=== PATIENT | female | born 2000 | race Caucasian/White ===

== ENCOUNTER 2022-10-15 18:03 | Emergency (ER) | payer OTHER, MEDICAID, SELFPAY ==
[2022-10-15] VITALS (10 sets, daily range): BP systolic 102–119; BP diastolic 56–69; PULSE 54–76; RESP 15–22; TEMP 36.8; O2SAT 96–100; BMI 35.2
--- NOTE | 2022-10-15 18:34 | DI.RAD.S_ITS ---
PROCEDURE: XR CHEST 1V INDICATIONS: chest pain TECHNIQUE: One view of the chest was acquired. COMPARISON: None. FINDINGS: Surgical changes and devices: None. Lungs and pleura: Lungs are clear. No pleural effusions or pneumothorax. Mediastinum: Mediastinal contours appear normal. Heart size is normal. Bones and chest wall: No suspicious bony lesions. Overlying soft tissues appear unremarkable. IMPRESSION: No acute cardiopulmonary abnormalities or focal airspace disease. Dictated by: Jose Velazquez M.D. on 10/15/2022 at 19:53 Approved by: Jose Velazquez M.D. on 10/15/2022 at 19:53
--- NOTE | 2022-10-15 19:24 | PC.NURSE ---
IV inserted by Vinny SYKES
[2022-10-15 19:28] LABS: Add Manual Diff / Slide Review NO; Basophils Absolute Auto 0 /uL (0-100); Basophils Percent Auto 0.3 % (0-2); Eosinophils Absolute Auto 0 /uL (0-450); Eosinophils Percent Auto 0.3 % (2-4); Hematocrit 37.9 % (36-46); Lymphocytes Absolute Auto 2000 /uL (1100-4500); Lymphocytes Percent Auto 20.4 % (25-40); Mean Corpuscular HGB Conc 34.2 % (30-36); Mean Corpuscular Hemoglobin 30.3 PG (26-34); Mean Corpuscular Volume 88.4 fL (80-100); Monocytes Absolute Auto 700 /uL (0-900); Monocytes Percent Auto 6.9 % (3-14); Neutrophils Absolute Auto 7200 /uL (1500-7000); Neutrophils Percent Auto 72.1 % (50-75); Platelet Count 230 X10^3/uL (150-400); Red Blood Cell Count 4.28 X10^6/uL (4.0-5.2); Red Cell Distribution Width 12.7 % (11.6-14.8)
[2022-10-15 19:34] LABS: INR 1.2 (0.9-1.3); Prothrombin Time 13.4 SECONDS (10.1-12.7)
[2022-10-15 19:37] LABS: PTT Partial Thromboplastin Tim 31 SECONDS (26-36)
[2022-10-15] MEDS: ASPIRIN 81 MG CHEW TAB 324 MG PO (19:51)
[2022-10-15 20:16] LABS: Alanine Aminotransferase 14 IU/L (<35); Albumin 4.1 g/dL (3.5-5.0); Albumin Globulin Ratio 1.4 (1.0-2.8); Alkaline Phosphatase 63 U/L (38-126); Aspartate Aminotransferase 22 IU/L (14-36); BUN Creatinine Ratio 14.5 (6-22); Bilirubin Total 0.6 mg/dL (0.2-1.3); Blood Urea Nitrogen 10 mg/dL (7-17); Calcium 8.7 mg/dL (8.4-10.2); Carbon Dioxide 23 mmol/L (22-32); Chloride 106 mmol/L (98-107); Creatine Kinase 40 U/L (30-135); Estimated Glomerular Filt Rate > 60 mL/min (>60); Glucose 86 mg/dL (70-100); HEMOLYSIS < 15 (0-50); Lipase 62 U/L (23-300); Potassium 3.5 mmol/L (3.4-5.1); Sodium 135 mmol/L (137-145); Total Protein 7.1 g/dL (6.3-8.2)
[2022-10-15 20:27] LABS: Troponin I < 0.012 ng/mL (0.01-0.034)
--- NOTE | 2022-10-15 22:03 | ED_ITS ---
HPI - Arrhythmia/Palpitations General Chief Complaint: Arrhythmia/Palpitations Stated Complaint: Palpitations Time Seen by Provider: 10/15/22 22:03 Source: patient Mode of arrival: Ambulatory History of Present Illness HPI narrative: Patient 22-year-old female history of ADHD presenting today with palpitations. She reports that she does take Ritalin daily she is found for the last 2 years without changes she drinks caffeinated monster drink. Today she felt irregular palpitations lasting for minutes. She did not pass out feel dizzy. Denies any real chest pain. This is never happened to her before. She also reports excessive yawning ongoing for couple weeks. No shortness of breath no other symptoms. Related Data Home Medications Medication Instructions Recorded Confirmed No Known Home Medications 05/06/22 05/06/22 Allergies Allergy/AdvReac Type Severity Reaction Status Date / Time No Known Drug Allergies Allergy Verified 05/06/22 11:55 Review of Systems Review of Systems ROS Unobtainable: All systems reviewed & are unremarkable except as noted in HPI and below Patient History Social History Smoking Status: Current some day smoker Smoking Status: Current some day smoker tobacco type: vaping Substance Use Type: marijuana Exam Initial Vital Signs Initial Vital Signs: Vital Signs Temperature 98.3 F 10/15/22 18:27 Pulse Rate 76 10/15/22 18:27 Respiratory Rate 16 10/15/22 18:27 Blood Pressure 119/57 L 10/15/22 18:27 Pulse Oximetry 100 10/15/22 18:27 Oxygen Delivery Method Room Air 10/15/22 18:27 GENERAL: Pleasant 22-year-old female and in no acute distress. HEENT: Head atraumatic,EOMI, pupils reactive, face symmetric, moist mucous membranes CARDIOVASCULAR: Regular rate and rhythm without murmurs, rubs or gallops. RESPIRATORY: Breath sounds equal bilaterally, no wheezes rales or rhonchi. ABDOMEN: Soft, nontender. Normoactive bowel sounds all 4 quadrants. No guarding or rebound. : No CVA tenderness EXTREMITIES: Normal range of motion, no clubbing or edema. Neurovascularly intact NEUROLOGICAL: Alert and oriented x4. SKIN: Warm, dry, no laceration, no petechiae, no rashes or lesions. Course Orders Ordered: ED Orders 10/15/22 18:34 XR chest 1V Stat EKG-12 Lead Stat 10/15/22 19:20 Complete Blood Count AUTO DIFF Stat PTT Partial Thromboplastin Adolph Stat Prothrombin Time INR Stat 10/15/22 19:55 Comprehensive Metabolic Panel Stat Lipase Stat Magnesium Stat Troponin & CK Cardiac Panel Stat Discontinued Medications Aspirin (Aspirin 81 Mg Chew Tab) 324 mg PO NOW ONE Stop: 10/15/22 18:35 Last Admin: 10/15/22 19:51 Dose: 324 mg Documented By: LULU Vital Signs Vital signs: Vital Signs - 8 hr 10/15/22 19:48 10/15/22 19:49 10/15/22 19:49 Pulse Rate 63 63 Respiratory Rate 15 22 Blood Pressure 113/65 Pulse Oximetry 97 97 10/15/22 20:00 10/15/22 20:00 10/15/22 20:30 Pulse Rate 63 Respiratory Rate 18 Blood Pressure 110/63 109/63 Pulse Oximetry 96 10/15/22 20:30 10/15/22 21:00 10/15/22 21:00 Pulse Rate 54 L 55 L Respiratory Rate 16 20 Blood Pressure 106/65 Pulse Oximetry 96 96 10/15/22 21:30 10/15/22 21:30 10/15/22 22:00 Pulse Rate 57 L Respiratory Rate 19 Blood Pressure 106/58 L 102/56 L Pulse Oximetry 96 10/15/22 22:00 10/15/22 22:27 10/15/22 22:28 Pulse Rate 55 L 55 L Respiratory Rate 18 20 Blood Pressure 117/69 Pulse Oximetry 96 98 MDM - Arrhythmia/Palpitations Lab Data 10/15/22 19:20 10/15/22 19:55 Labs: Lab Results 10/15/22 10/15/22 10/15/22 Range/Units 19:20 19:20 19:55 WBC 10.0 (4.5-11.0) X10^3/uL RBC 4.28 (4.0-5.2) X10^6/uL Hgb 13.0 (12.0-16.0) g/dL Hct 37.9 (36-46) % MCV 88.4 (80-100) fL MCH 30.3 (26-34) PG MCHC 34.2 (30-36) % RDW 12.7 (11.6-14.8) % Plt Count 230 (150-400) X10^3/uL Neut % (Auto) 72.1 (50-75) % Lymph % (Auto) 20.4 L (25-40) % Petroleum % (Auto) 6.9 (3-14) % Eos % (Auto) 0.3 L (2-4) % Baso % (Auto) 0.3 (0-2) % Neut # (Auto) 7200 H (0154-3735) /uL Lymph # (Auto) 2000 (4712-1332) /uL Petroleum # (Auto) 700 (0-900) /uL Eos # (Auto) 0 (0-450) /uL Baso # (Auto) 0 (0-100) /uL PT 13.4 H (10.1-12.7) SECONDS INR 1.2 (0.9-1.3) APTT 31 (26-36) SECONDS Sodium 135 L (137-145) mmol/L Potassium 3.5 (3.4-5.1) mmol/L Chloride 106 (98-107) mmol/L Carbon Dioxide 23 (22-32) mmol/L BUN 10 (7-17) mg/dL Creatinine 0.69 (0.52-1.04) mg/dL Estimated GFR > 60 (>60) mL/min BUN/Creatinine Ratio 14.5 (6-22) Glucose 86 (70-100) mg/dL Calcium 8.7 (8.4-10.2) mg/dL Magnesium 2.0 (1.6-2.3) mg/dL Total Bilirubin 0.6 (0.2-1.3) mg/dL AST 22 (14-36) IU/L ALT 14 (<35) IU/L Alkaline Phosphatase 63 (38-126) U/L Total Creatine Kinase 40 (30-135) U/L Troponin I < 0.012 (0.01-0.034) ng/mL Total Protein 7.1 (6.3-8.2) g/dL Albumin 4.1 (3.5-5.0) g/dL Globulin 3.0 (1.7-4.1) g/dL Albumin/Globulin Ratio 1.4 (1.0-2.8) Lipase 62 (23-300) U/L Imaging Data Chest x-ray: Radiologist's Impresson: PROCEDURE:? XR CHEST 1V ? INDICATIONS:? chest pain ? TECHNIQUE:? One view of the chest was acquired.? ? COMPARISON:? None. ? FINDINGS:? ? Surgical changes and devices:? None.? ? Lungs and pleura:? Lungs are clear.? No pleural effusions or pneumothorax.? ? Mediastinum:? Mediastinal contours appear normal.? Heart size is normal.? ? Bones and chest wall:? No suspicious bony lesions.? Overlying soft tissues appear unremarkable.? ? IMPRESSION:? No acute cardiopulmonary abnormalities or focal airspace disease. ? Dictated by: Jose Velazquez M.D. on 10/15/2022 at 19:53 ? ? ECG Data Interpretation: Normal sinus rhythm rate 57 NJ interval 130 QRS [address] changes no T- wave inversions no priors to compare MDM Narrative Medical decision making narrative: Patient presenting today with ongoing palpitations. Heart rate is within normal limits here. Blood work is overall reassuring. She is on a stimulant and takin g caffeine which may cause some palpitations. Recommend outpatient Holter monitoring and return if needed. She is not having any syncope episodes no sign of arrhythmia on monitor. Discharge Plan Departure Patient Disposition: Home Clinical Impression: Palpitations Instructions: DI for Palpitations Activity Restrictions/Additional Instructions: *You have been diagnosed with palpitations *What to do: You need a Holter monitor. To monitor your heart rate. Please decrease her caffeine intake *Continue to take medications as directed *Follow up with your primary care provider in 2-3 days or call [phone] *Return to ER if you should have increased palpitations dizziness lightheadedness passing or any new, worsening or concerning symptoms Prescriptions: No Action No Known Home Medications Referrals: Demarco Severino MD [Primary Care Provider] - Stand Alone Forms: Patient Portal/API
== END 2022-10-15 22:30 | disposition home or self-care (01) ==
PROVIDERS: Emergency Medicine; Emergency Provider Emergency Medicine; PCP Pediatrics
DX: R00.2 Palpitations (principal); R07.9 Chest pain, unspecified
CPT/HCPCS: 36415; 71045; 80053; 82550; 83690; 83735; 84484; 85025; 85610; 85730; 93005; 99283; 99284

== ENCOUNTER → 2022-12-19 14:21 | Outpatient (CLI) | payer OTHER, MEDICAID, SELFPAY | PROVIDERS: Visit Provider Physician Assistant | DX: R30.0 Dysuria (principal) | CPT/HCPCS: 81002; 87086 ==